=== PATIENT | female | born 1970 | race Caucasian/White ===

== ENCOUNTER 2020-10-07 17:46 | Emergency (ER) | payer OTHER ==
[~2020-10-07] VITALS: Ht 152.4 cm; Wt 86.2 kg
[2020-10-07 18:13] VITALS: BP 153/63
--- NOTE | 2020-10-07 19:45 | NUR ---
PT EVALUATED AND DISCHARGED BY ALANIS TOLBERT. ALL RELEVANT TEACHINGS, MEDICATION AND SIDE EFFECTS EXPLAINED BY ALANIS TOLBERT.
== END 2020-10-07 19:45 | disposition home or self-care (01) ==
LOC: MED 17:46
DX: U07.1 COVID-19 (principal); E11.9 Type 2 diabetes mellitus without complications
CPT/HCPCS: 71045; 99283

== ENCOUNTER 2021-06-29 10:13 | Emergency (ER) | payer OTHER ==
[~2021-06-29] VITALS: Ht 152.4 cm; Wt 88.9 kg
[2021-06-29 10:48] VITALS: BP 149/84
--- NOTE | 2021-06-29 11:00 | NUR ---
Patient ambulated to bed 08 with steady/even gait.
--- NOTE | 2021-06-29 11:05 | NUR ---
Dr. Arias is evaluating patient at bedside.
--- NOTE | 2021-06-29 11:05 | NUR ---
51 Y/O F C/O BILATERAL EYE C/O SWELLING, REDNESS, EYELID EDEMA FOR 4 DAYS. EDEMA AND SKIN REDNESS ON L EYE, DENIES PAIN ON L EYE, PT HAS SOME REDNESS ON SCELERA ON R EYE AND PAIN, NO SWELLING, BLEEDING AT THIS TIME. PT STATES SHE HAS IMPAIRED VISION, USES CORRECTIVE LENSES. PMH: DM2 GLUCOSE: [id number] NKA MED: DENIES
[2021-06-29] MEDS ORDERED: TETRACAINE HCL/PF 0.5% OPTH 4 ML BTL ONE (11:07)
[2021-06-29] MEDS: TETRACAINE HCL/PF 0.5% OPTH 4 ML BTL OP ONE (11:09)
--- NOTE | 2021-06-29 11:53 | NUR ---
Dr. rAias is evaluating patient at bedside
[2021-06-29] MEDS ORDERED: [UNRECOGNIZED DRUG - CODE] OP (12:20)
--- NOTE | 2021-06-29 12:25 | NUR ---
Patient discharged with v/s stable. Written and verbal after care instructions given and explained. Patient alert, oriented and verbalized understanding of instructions. Ambulatory with steady gait. All questions addressed prior to discharge. ID band removed. Patient advised to follow up with PMD. Rx of Bacitracin/Polymyxin B Sulfate Ointment given. Patient educated on indication of medication including possible reaction and side effects. Opportunity to ask questions provided and answered.
== END 2021-06-29 12:25 | disposition home or self-care (01) ==
LOC: MED 10:13
DX: H01.006 Unspecified blepharitis left eye, unspecified eyelid (principal); H01.003 Unspecified blepharitis right eye, unspecified eyelid; E11.9 Type 2 diabetes mellitus without complications
CPT/HCPCS: 99283